=== PATIENT | male | born 1970 | race Caucasian/White ===

== ENCOUNTER → 2017-12-21 | Outpatient (CLI) | payer BC ==
[~2017-12-21] MED LIST: AMLO5TAB2 PO; EZET10TA5 PO; LISI1TAB PO
== END ==
LOC: WOUNDCARE 12:44
PROVIDERS: ATTEND Surgery
DX: L98.495 Non-pressure chronic ulcer of skin of other sites with muscle involvement without evidence of necrosis (principal); L98.492 Non-pressure chronic ulcer of skin of other sites with fat layer exposed; T21.3 Burn of third degree of trunk; T24.31 Burn of third degree of thigh; L94.2 Calcinosis cutis
CPT/HCPCS: 11042; 11043; 87070; 87075; 87077; 87186; 87205

== ENCOUNTER → 2017-12-28 | Outpatient (CLI) | payer BC | LOC: WOUNDCARE 12:24 | PROVIDERS: ATTEND Surgery | DX: L98.492 Non-pressure chronic ulcer of skin of other sites with fat layer exposed (principal); L97.122 Non-pressure chronic ulcer of left thigh with fat layer exposed; L94.2 Calcinosis cutis; T21.3 Burn of third degree of trunk; T24.31 Burn of third degree of thigh | CPT/HCPCS: 11042 ==

== ENCOUNTER → 2018-01-04 | Outpatient (CLI) | payer BC | LOC: WOUNDCARE 09:23 | PROVIDERS: ATTEND Surgery | DX: L98.492 Non-pressure chronic ulcer of skin of other sites with fat layer exposed (principal); T21.3 Burn of third degree of trunk; L97.122 Non-pressure chronic ulcer of left thigh with fat layer exposed; T24.31 Burn of third degree of thigh; L94.2 Calcinosis cutis | CPT/HCPCS: 11042 ==

== ENCOUNTER → 2018-01-12 | Outpatient (CLI) | payer BC | LOC: WOUNDCARE 12:33 | PROVIDERS: ATTEND Surgery | DX: L98.492 Non-pressure chronic ulcer of skin of other sites with fat layer exposed (principal); T21.3 Burn of third degree of trunk; L97.122 Non-pressure chronic ulcer of left thigh with fat layer exposed; T24.31 Burn of third degree of thigh; L94.2 Calcinosis cutis | CPT/HCPCS: 11042 ==

== ENCOUNTER → 2018-01-18 | Outpatient (CLI) | payer BC | LOC: WOUNDCARE 12:24 | PROVIDERS: ATTEND Nurse Practitioner | DX: L98.492 Non-pressure chronic ulcer of skin of other sites with fat layer exposed (principal); L94.2 Calcinosis cutis; T21.3 Burn of third degree of trunk | CPT/HCPCS: 11042; 87070; 87075; 87101; 87186; 87205 ==

== ENCOUNTER → 2018-01-27 | Outpatient (CLI) | payer BC | LOC: WOUNDCARE 09:33 | PROVIDERS: ATTEND Surgery | DX: L98.492 Non-pressure chronic ulcer of skin of other sites with fat layer exposed (principal); L94.2 Calcinosis cutis; T21.3 Burn of third degree of trunk | CPT/HCPCS: 11042 ==

== ENCOUNTER → 2018-03-01 | Outpatient (CLI) | payer BC | LOC: WOUNDCARE 12:25 | PROVIDERS: ATTEND Surgery | DX: L98.492 Non-pressure chronic ulcer of skin of other sites with fat layer exposed (principal); L94.2 Calcinosis cutis; T21.3 Burn of third degree of trunk | CPT/HCPCS: 99212 ==

== ENCOUNTER 2022-05-07 06:50 | Observation (INO) | payer BC ==
[~2022-05-07] VITALS: Ht 170.2 cm; Wt 86.3 kg
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
[2022-05-07] MEDS ORDERED: ASPIRIN 81 MG CHEW (CHILDREN'S ASA) PO ONE (07:45)
[2022-05-07 07:49] LABS: BASOPHILS # (AUTO) 0.1 10^3/uL (0.0-0.1); BASOPHILS % (AUTO) 1 % (0-10); EOSINOPHILS # (AUTO) 0.2 10^3/uL (0.0-0.3); EOSINOPHILS % (AUTO) 2 % (0-10); HEMATOCRIT 45 % (40-54); LYMPHOCYTES # (AUTO) 1.7 10^3/uL (1.0-4.0); LYMPHOCYTES % (AUTO) 17 % (12-44); MEAN CORPUSCULAR HEMOGLOBIN 31 pg (25-34); MEAN CORPUSCULAR HGB CONC 38 g/dL (32-36); MEAN CORPUSCULAR VOLUME 83 fL (80-99); MEAN PLATELET VOLUME 9.4 fL (9.0-12.2); MONOCYTES % (AUTO) 10 % (0-12); NEUTROPHILS # (AUTO) 6.9 10^3/uL (1.8-7.8); NEUTROPHILS % (AUTO) 70 % (42-75); PLATELET COUNT 343 10^3/uL (130-400); WHITE BLOOD COUNT 9.8 10^3/uL (4.3-11.0)
[2022-05-07 08:00] LABS: ALBUMIN 4.4 GM/DL (3.2-4.5)
[2022-05-07 08:01] LABS: INR 0.9 (0.8-1.4); PROTHROMBIN TIME PATIENT 12.4 SEC (12.2-14.7)
[2022-05-07 08:03] LABS: TOTAL PROTEIN 8.3 GM/DL (6.4-8.2)
[2022-05-07 08:05] LABS: BILIRUBIN,TOTAL 0.7 MG/DL (0.1-1.0)
--- NOTE | 2022-05-07 08:05 | Diagnostic Imaging Report ---
Indication: Chest pain Portable chest 8:03 AM Heart size and pulmonary vascularity are normal. Lungs are clear. There are no effusions or pneumothoraces. IMPRESSION: No acute abnormalities in the chest. Dictated by: Dictated on workstation # [id number]
[2022-05-07 08:07] LABS: CREATININE SERUM 1.01 MG/DL (0.60-1.30)
[2022-05-07 08:10] LABS: MAGNESIUM 1.7 MG/DL (1.6-2.4)
[2022-05-07] MEDS ORDERED: ENOXAPARIN 100 MG/1 ML (LOVENOX) SYR SC ONE (09:45)
[2022-05-07 12:00] VITALS: BP 183/118
[2022-05-07] MEDS ORDERED: ONDANSETRON 4 MG/2 ML (SDV) Z0FRAN IV PRN (12:00)
[2022-05-07] MEDS ORDERED: NS IV 1000 ML 1,000 ML IV SCH (12:00)
[2022-05-07] MEDS ORDERED: NITROGLYCERIN 0.4 MG SL TABS BTL 25'S SL PRN (12:00)
[2022-05-07 12:18] VITALS: BP 165/95
[2022-05-07] MEDS ORDERED: RT-ALBUTEROL SULF 2.5 MG/3 ML PRE-MIX VIAL INH PRN (12:30)
[2022-05-07 13:00] VITALS: BP 185/111
[2022-05-07] MEDS ORDERED: LISI40TA9 PO (13:35)
[2022-05-07] MEDS ORDERED: CITA20TA9 PO (13:35)
[2022-05-07] MEDS ORDERED: LOVA20TA2 PO (13:35)
[2022-05-07] MEDS ORDERED: GLIP5TAB26 PO (13:35)
[2022-05-07] MEDS ORDERED: METF-399 PO (13:35)
[2022-05-07] MEDS ORDERED: LOSA50TA63 PO (13:35)
[2022-05-07] MEDS ORDERED: HYDR12.56 PO (13:35)
[2022-05-07] MEDS ORDERED: AMLO-251 PO (13:35)
[2022-05-07] MEDS ORDERED: MTP100TCR PO (13:35)
[2022-05-07] MEDS ORDERED: OMEP20TA33 PO (13:35)
[2022-05-07] MEDS ORDERED: IBUP-2185 PO (13:35)
[2022-05-07 14:00] VITALS: BP 178/112
[2022-05-07] MEDS ORDERED: NON-FORMULARY MEDICATION 1 EA EA (Ibuprofen 600 MG) PO PRN (14:30)
[2022-05-07] MEDS ORDERED: PATIENT MAY USE OWN MEDS, ALL MC SCH (14:45)
[2022-05-07] MEDS ORDERED: IBUPROFEN 600 MG (MOTRIN) TAB PO PRN (15:30)
[2022-05-07] MEDS ORDERED: meTOprolol SUCCINATE 100 MG (TOPROL XL) TAB PO NR (15:45)
[2022-05-07] MEDS: inSUlin ASPART (NovoLOG) 1 UNIT/0.01 ML (CHARGE PER UNIT) SC SCH ×2 (16:00→21:42)
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
[2022-05-07] MEDS ORDERED: CATHETER FLUSH 10 ML SYR IV PRN (16:30)
[2022-05-07] MEDS ORDERED: NS IV 1000 ML 1,000 ML IV ONE (16:30)
--- NOTE | 2022-05-07 16:30 | Pre-Op Note & Conscious Sedat ---
Pre-Operative Progress Note Date of Available H&P: May 07, 2022 Date H&P Reviewed: May 07, 2022 Time H&P Reviewed: 16:29 History & Physical: H&P Reviewed, Patient Examed, No changes noted Pre-Op Diagnosis: Possible NSTEMI Conscious Sedation Pre-Proced ASA Score 2 For ASA 3 and 4: Consider anesthesia and medical clearance. Also, for patients with a history of failed moderate sedation consider anesthesia. Airway Lungs Heart ASA score ASA 1: a normal healthy patient ASA 2: a patient with a mild systemic disease (mid diabetes, controlled hypertension, obesity ASA 3: a patient with a severe systemic disease that limits activity (angina, COPD, prior Myocardial infarction) ASA 4: a patient with an incapacitating disease that is a constant threat to life (CHF, renal failure) ASA 5: a moribund patient not expected to survive 24 hrs. (ruptured aneurysm) ASA 6: a declared brain- patient whose organs are being harvested. For emergent operations, add the letter E after the classification Mallampati Classification Grade 2 Sedation Plan Analgesia, Amnesia, Plan communicated to team members, Discussed options with patient/fam, Discussed risks with patient/fam The patient is an appropriate candidate to undergo the planned procedure, sedation, and anesthesia. The patient immediately re-assessed prior to indication. Given his current clinical status, he is considered moderately frail in light of the possible myocardial infarction. He has no history of heart failure. DORIE VOGEL JR, MD May 07, 2022 16:30
[2022-05-07] MEDS ORDERED: VERAPAMIL 5 MG/2 ML (CALAN) VIAL IV ONE (17:04)
[2022-05-07] MEDS ORDERED: fentaNYL INJ 100 MCG/2 ML AMP ONE (17:04)
[2022-05-07] MEDS ORDERED: NITRO DRIP 25000 MCG/D5W 250 ML IV ONE (17:05)
[2022-05-07] MEDS ORDERED: MIDAZOLAM 2 MG/2 ML (VERSED) VIAL ONE (17:05)
[2022-05-07] MEDS ORDERED: NS IV 1000 ML 1,000 ML ONE (17:05)
[2022-05-07] MEDS ORDERED: HEParin 1000 UNIT/ML (10ML VIAL) FOR BOLUS ONE (17:05)
--- NOTE | 2022-05-07 17:23 | History & Physicial ---
History of Present Illness History of Present Illness Reason for visit/HPI Patient is a 51-year-old male with known hypertension, hyperlipidemia as well as recently diagnosed diabetes presents to [facility] emergency department with chest pain. He apparently has been suffering from chest pain off and on since Wednesday, May 04, 2022. This morning however chest pain doubled him over and he presented to [facility] emergency department. He has not been followed by cardiology and over the past several years has done well on his current medication regiment. Date of Admission May 07, 2022 at 11:23 Date Seen by a Provider: May 07, 2022 I consulted on this patient on 05/07/22 17:19 Attending Physician Pan Yeboah MD Admitting Physician Admitting Physician: Pan Yeboah MD Attending Physician: Pan Yeboah MD Consult Allergies and Home Medications Allergies Uncoded Allergies: PEANUTS (Allergy, Unknown, 05/07/22) Patient Home Medication List Home Medication List Reviewed: Yes Amlodipine Besylate (Amlodipine Besylate) 10 Mg Tablet, 10 MG PO DAILY, (Reported) Entered as Reported by: MENA CARMONA on 05/07/221334 Last Action: Continued Citalopram Hydrobromide (Citalopram HBr) 20 Mg Tablet, 20 MG PO 1800, (Reported) Entered as Reported by: MENA CARMONA on 05/07/221334 Last Action: Continued Glipizide (Glipizide ER) 5 Mg Tab.er.24, 5 MG PO DAILY, (Reported) Entered as Reported by: MENA CARMONA on 05/07/221334 Last Action: Continued Hydrochlorothiazide (Hydrochlorothiazide) 12.5 Mg Tablet, 12.5 MG PO DAILY, (Reported) Entered as Reported by: MENA CARMONA on 05/07/221334 Last Action: Converted Ibuprofen (Ibuprofen) 200 Mg Capsule, 400-600 MG PO Q8H PRN for PAIN-MILD (1-4), (Reported) Entered as Reported by: MENA CARMONA on 05/07/221334 Last Action: Converted Lisinopril (Lisinopril) 40 Mg Tablet, 40 MG PO DAILY, (Reported) Entered as Reported by: MENA CARMONA on 05/07/221334 Last Action: Continued Losartan Potassium (Losartan Potassium) 50 Mg Tablet, 50 MG PO 1800, (Reported) Entered as Reported by: MENA CARMONA on 05/07/221334 Last Action: Continued Lovastatin (Lovastatin) 20 Mg Tablet, 20 MG PO DAILY, (Reported) Entered as Reported by: MENA CARMONA on 05/07/221334 Last Action: Converted Metformin HCl (Metformin HCl) 1,000 Mg Tablet, 1,000 MG PO BID, (Reported) Entered as Reported by: MENA CARMONA on 05/07/221334 Last Action: Converted Metoprolol Succinate (Metoprolol Succinate) 100 Mg Tab.er.24h, 100 MG PO DAILY, (Reported) Entered as Reported by: MENA CARMONA on 05/07/221334 Last Action: Reviewed Omeprazole Magnesium (Prilosec Otc) 20 Mg Tablet.dr, 20 MG PO 1800, (Reported) Entered as Reported by: MENA CARMONA on 05/07/221334 Last Action: Converted Discontinued Medications Amlodipine Besylate (Amlodipine Besylate) 5 Mg Tablet, 5 MG PO DAILY, (Reported) Discontinued Reason: No Longer Taking Entered as Reported by: JERRI BALTAZAR on 09/20/11 1052 Last Action: Discontinued Ezetimibe (Zetia) 10 Mg Tablet, 10 MG PO DAILY, (Reported) Discontinued Reason: No Longer Taking Entered as Reported by: PARISH BARAHONA on 09/19/11 1037 Last Action: Discontinued Hctz/Lisinopril (Lisinopril-Hctz 20-12.5 Mg Tab) 1 Each Tablet, 1 EACH PO BID, (Reported) Discontinued Reason: No Longer Taking Entered as Reported by: PARISH BARAHONA on 09/19/11 1037 Last Action: Discontinued Past Ngouxsa-Lyfnad-Ppxmdf Hx Patient Social History Marrital Status: Smoking Status: Never a Smoker Have you traveled recently?: No Alcohol Use?: No Pt feels they are or have been: Yes Reproductive System Hx Reproductive Disorders: No Review of Systems Constitutional: see HPI Physical Exam Vital Signs Vital Signs - First Documented 05/07/22 07:06 Temp 36.8 Pulse 92 Resp 18 B/P (MAP) 183/106 (131) Pulse Ox 98 O2 Delivery Room Air Capillary Refill : Less Than 3 Seconds Height, Weight, BMI Height: '" Weight: lbs. oz. kg; 29.79 BMI Method: General Appearance: No Apparent Distress Assessment/Plan Assessment and Plan Problems: (1) Non-ST elevation myocardial infarction (NSTEMI), initial care episode Assessment & Plan: It appears based upon his presentation to ED he has having a NSTEMI. He was also noted to have elevated troponin level. Patient is admitted to cardiac stepdown. Cardiology Dr. Bonilla has been consulted. (2) Primary hypertension Assessment & Plan: After cardiology evaluation most likely he will be started back on his blood pressure medications. He has had difficulty with various classes of blood pressure medications and therefore he is on the lisinopril and losartan both. (3) Mixed hyperlipidemia Assessment & Plan: He is currently on lovastatin at home. Most likely he will be switched to more intensive cholesterol management with Crestor. (4) Type 2 diabetes mellitus without complication Assessment & Plan: We will hold on metformin for now. Sliding scale insulin (5) Obesity Clinical Quality Measures AMI/AHF: ASA po Prior to arrival: PAN Fang MD May 07, 2022 17:23
[2022-05-07] MEDS ORDERED: TICAGRELOR 90 MG TABLET (BRILINTA) PO ONE (17:41)
[2022-05-07] MEDS ORDERED: PANTOPRAZOLE 20 MG TABLET (PROTONIX) PO SCH (18:00)
[2022-05-07] MEDS ORDERED: LOSARTAN 50 MG (COZAAR) TAB PO SCH (18:00)
[2022-05-07] MEDS ORDERED: METFORMIN 1000 MG PO SCH (18:00)
[2022-05-07] MEDS ORDERED: NON-FORMULARY MEDICATION 1 EA EA (Omeprazole Magnesium (Prilosec Otc) 20 MG) PO SCH (18:00)
[2022-05-07] MEDS ORDERED: hydrALAZINE (APESOLINE) 20 MG/ML VIAL ONE (18:28)
--- NOTE | 2022-05-07 18:57 | Cardiac Cath Report ---
CARDIAC CATHETERIZATION DATE OF PROCEDURE: 05/07/2022 INDICATION: Non-ST elevation myocardial infarction. HISTORY: The patient is a 51 year old male with no known history of coronary artery disease by cardiac risk factor history of hypertension, hyperlipidemia and type 2 diabetes mellitus. He has had a several day history of intermittent chest discomfort that gradually increased in frequency, duration and severity. This morning he had more severe chest discomfort and came to the hospital. His initial troponin level was elevated. A follow-up troponin level several hours later was further elevated. The patient did become pain-free prior to arriving in the emergency room. He had some dynamic electrocardiogram changes and anterior wall motion abnormalities on his echocardiogram. In light of this constellation of findings, he is now referred for further evaluation with an urgent cardiac catheterization. Given his current clinical status, he is considered moderately frail. He does not have any history of heart failure. PROCEDURES PERFORMED: 1. Left heart catheterization with hemodynamic measurements. 2. Diagnostic walk[place] river coronary angiography. 3. Drug-eluting stent placement to the mid left anterior descending coronary artery. This was most likely the ischemia related vessel for the non-ST elevation myocardial infarction. 4. Drug-eluting stent placement to the mid right coronary artery. PROCEDURE DESCRIPTION: After informed consent and in the fasting state, left heart catheterization was performed through the right radial artery utilizing a 6 Burkinan system by percutaneous approach. Standard Von catheters were utilized for the diagnostic portion of the procedure. A 6 Burkinan CLS 3.5 guide catheter was utilized for the percutaneous coronary intervention on the left anterior descending coronary artery. I attempted to perform the coronary intervention on the right coronary artery through a 6 Burkinan AR-1 guide catheter and a 6 Burkinan Kamari right guide catheter but these would not sit well in the ostium. I was ultimately able to perform the coronary intervention on the right coronary artery through a 6 Burkinan AL-1 guide catheter. All catheters were exchanged over a guidewire. Following the procedure, a vascular band was ap plied to the radial artery access site and the sheath was removed with good hemostasis. RESULTS: HEMODYNAMICS: The aortic pressure was 130/88 mmHg. The left ventricular pressure was 130/0 mmHg with a left ventricular end-diastolic pressure of 8 mmHg. There was no significant pressure gradient upon pullback across aortic valve. CORONARY ANGIOGRAPHY: Left main coronary artery: Free of significant disease. Left anterior descending coronary artery: There was a 99% stenosis in the midportion of the vessel just distal to the first major diagonal branch with NAREN I flow. This was most likely the ischemia related vessel for the acute non-ST elevation myocardial infarction. Left circumflex coronary artery: Free of significant disease. Ramus intermedius: There was a ramus intermedius branch that was free of significant disease. Right coronary artery: Dominant and there was a 90% stenosis in the midsegment with NAREN I flow to the distal branches. The posterior descending artery and an occluded posterolateral branches were free of significant disease. PERCUTANEOUS CORONARY INTERVENTION OF LEFT ANTERIOR DESCENDING CORONARY ARTERY: I first directed my attention to the lesion in the midportion of the left anterior descending coronary artery because this was the vessel corresponding to the electrocardiogram changes and wall motion abnormality on the echocardiogram and was most likely the ischemia related vessel for the acute myocardial infarction. I first successfully cross the stenosis with a Prowater guidewire. I subsequently performed coronary angioplasty with a 2.5 x 12 mm Trek balloon at a pressure of 10 tiffany for several inflations. Flow was restored. I subsequently deployed a 2.75 x 23 mm drug-eluting Xience Skypoint stent at a pressure of 16 tiffany. Following stent placement, there was 0% residual stenosis with NAREN-3 flow. PERCUTANEOUS CORONARY INTERVENTION OF RIGHT CORONARY ARTERY: I then directed my attention to the right coronary artery and first attempted to cross the stenosis with a Prowater guidewire through a 6 Burkinan AR-1 guide catheter but this catheter would not sit well in the ostium. The system was removed over wire. I then engage the right coronary artery with a 6 Burkinan Kamari right guide catheter but this also would not sit well in the vessel. I was then able to seat a 6 Burkinan AL-1 guide catheter in the right coronary artery. I successfully crossed the stenosis in the midportion of the vessel with a Whisper medium support guidewire. I subsequently performed coronary angioplasty with t he same 2.5 x 12 mm Trek balloon at a pressure of 10 tiffany for several inflations. Flow was improved. I subsequently deployed a 3.5 x 23 mm drug-eluting Xience Skypoint stent in the midsegment and a pressure of 16 tiffany. I then postdilated the entire length of the stent with a 3.5 x 12 mm noncompliant Trek balloon at a pressure of 16 tiffany. Following stent placement, there was 0% residual stenosis with NAREN-3 flow. IMPRESSION: 1. Normal left heart pressures. 2. The midportion of the left anterior descending coronary artery contained a 99% stenosis with NAREN I flow. This was most likely the ischemia related vessel for the acute myocardial infarction. 3. The mid right coronary artery contained a 90% stenosis with NAREN I flow. 4. Status post drug-eluting stent placement to the midportion of the left anterior descending coronary artery with a 2.75 x 23 mm Xience Skypoint stent with 0% residual stenosis and NAREN-3 flow. 5. Status post drug-eluting stent placement to the mid right coronary artery with a 3.5 x 23 mm Xience Skypoint stent postdilated with a 3.5 mm noncompliant balloon with 0% residual stenosis and NAREN-3 flow. 6. The patient is known to have normal left ventricular systolic function with an estimated ejection fraction of 55-60% by echocardiogram performed prior to this procedure. Certain portions of this document may have been dictated utilizing voice recognition technology. Inherent to this technology, typographical and grammatical errors may exist. As much as I am diligent to identify and correct these mistakes, some errors may remain in the document. DORIE VOGEL JR, MD May 07, 2022 18:57
[2022-05-07] MEDS ORDERED: HEParin (CATH LAB) 2,000 ML IV ONE (19:12)
[2022-05-07] MEDS ORDERED: LIDOCAINE 1% INJ 30 ML (XYLOCAINE) VIAL ONE (19:12)
[2022-05-07] MEDS: NS IV 1000 ML 1,000 ML IV SCH (20:15)
[2022-05-07 21:00] VITALS: BP_SYST 170; BP_SYST 178; BP_DIAS 107
[2022-05-07] MEDS ORDERED: ROSUVASTATIN 20 MG (CRESTOR) TABLET PO SCH (21:00)
[2022-05-07] MEDS ORDERED: TICAGRELOR 90 MG TABLET (BRILINTA) PO SCH (21:00)
[2022-05-07 21:11] VITALS: BP 178/107
[2022-05-07] MEDS ORDERED: ENOXAPARIN 100 MG/1 ML (LOVENOX) SYR SC SCH (22:00)
[2022-05-08] VITALS: BP 140/97
[2022-05-08] MEDS: NS IV 1000 ML 1,000 ML IV SCH ×2 (05:08→15:16)
[2022-05-08 05:53] LABS: TRIGLYCERIDES 202 MG/DL (<150); VLDL CHOLESTEROL 40 MG/DL (5-40)
[2022-05-08 05:58] LABS: CHOLESTEROL 161 MG/DL (< 200)
[2022-05-08 05:59] LABS: HDL CHOLESTEROL 32 MG/DL (40-60)
[2022-05-08] MEDS ORDERED: TICAGRELOR 90 MG TABLET (BRILINTA) PO SCH (06:00)
[2022-05-08] MEDS: inSUlin ASPART (NovoLOG) 1 UNIT/0.01 ML (CHARGE PER UNIT) SC SCH ×2 (06:31→13:01)
[2022-05-08] MEDS ORDERED: amLODIPine 10 MG (NORVASC) TAB PO SCH (07:00)
[2022-05-08] MEDS ORDERED: HydroCHLOROthiazide CAP/TABLET 12.5 MG TAB PO SCH (07:00)
[2022-05-08] MEDS ORDERED: glipiZIDE XL 5 MG (GLUCOTROL XL) TAB PO SCH (07:00)
--- NOTE | 2022-05-08 07:31 | Progress Note ---
Subjective Date Seen by a Provider: May 08, 2022 Time Seen by a Provider: 07:15 Subjective/Events-last exam Patient feeling much better this morning. He denies any chest pain. Objective Exam Vital Signs Date Time Temp Pulse Resp B/P (MAP) Pulse Ox O2 Delivery O2 Flow Rate FiO2 05/08/22 04:00 Room Air 05/08/22 04:00 37.0 05/08/22 01:13 84 05/08/22 00:00 74 18 140/97 (111) 97 Room Air 05/08/22 00:00 Room Air 05/08/22 00:00 37.0 05/07/22 21:11 36.7 73 18 178/107 (130) 97 Room Air 05/07/22 21:00 36.7 73 18 178/107 (130) 97 Room Air 05/07/22 21:00 74 170/107 (128) 99 Room Air 05/07/22 20:00 Room Air 05/07/22 20:00 36.9 05/07/22 19:33 75 05/07/22 16:00 Room Air 05/07/22 14:00 72 17 178/112 (134) 99 05/07/22 13:00 73 05/07/22 13:00 73 26 185/111 (135) 99 05/07/22 12:18 36.8 85 98 05/07/22 12:00 84 28 183/118 (139) 100 05/07/22 12:00 99 Room Air 05/07/22 12:00 99 Room Air 05/07/22 11:38 36.8 85 18 165/95 98 Room Air I & O 05/08/22 06:59 Intake Total 1500 ml Balance 1500 ml Capillary Refill : Less Than 3 Seconds General Appearance: No Apparent Distress Neck: Supple Respiratory: Lungs Clear Cardiovascular: Regular Rate, Rhythm, No Murmur Gastrointestinal: soft Extremity: Normal Capillary Refill Results Lab Laboratory Tests 05/07/22 13:15: Troponin I 0.574*H 05/07/22 22:02: Glucometer 295H 05/08/22 05:30: Triglycerides Level 202H, Cholesterol Level 161, LDL Cholesterol Direct 112, VLDL Cholesterol 40, HDL Cholesterol 32L 05/08/22 06:24: Glucometer 227H Assessment/Plan Assessment/Plan Assess & Plan/Chief Complaint (1) Non-ST elevation myocardial infarction (NSTEMI), initial care episode Assessment & Plan: It appears based upon his presentation to ED he has having a NSTEMI. He was also noted to have elevated troponin level. Patient is admitted to cardiac stepdown. Cardiology Dr. Bonilla has been consulted. 05/08 -Successful cardiac catheterization with placement of 2 stents 1 in right in 1 LAD. -I spoke with him regarding outpatient improvement of his blood pressure as well as diabetes. (2) Primary hypertension Assessment & Plan: After cardiology evaluation most likely he will be started back on his blood pressure medications. He has had difficulty with various classes of blood pressure medications and therefore he is on the lisinopril and losartan both. (3) Mixed hyperlipidemia Assessment & Plan: He is currently on lovastatin at home. Most likely he will be switched to more intensive cholesterol management with Crestor. (4) Type 2 diabetes mellitus without complication Assessment & Plan: We will hold on metformin for now. Sliding scale insulin 05/08 -He did receive dose of insulin for sliding scale Clinical Quality Measures AMI/AHF: ASA po Prior to arrival: LARRY Fang MD May 08, 2022 07:31
[2022-05-08 07:36] VITALS: BP 179/116
[2022-05-08] MEDS ORDERED: ENOXAPARIN 100 MG/1 ML (LOVENOX) SYR SC SCH (08:00)
[2022-05-08] MEDS ORDERED: ENOXAPARIN 40 MG/0.4 ML (LOVENOX) SYR SC SCH (08:00)
[2022-05-08] MEDS ORDERED: meTOprolol SUCCINATE 100 MG (TOPROL XL) TAB PO SCH (09:00)
[2022-05-08] MEDS ORDERED: ASPIRIN 81 MG CHEW (CHILDREN'S ASA) PO SCH (09:00)
[2022-05-08] MEDS ORDERED: NON-FORMULARY MEDICATION 1 EA EA (Hydrochlorothiazide 12.5 MG) PO SCH (09:00)
[2022-05-08] MEDS ORDERED: lisINopril 40 MG (PRINIVIL) TABLET PO SCH (09:00)
[2022-05-08] MEDS ORDERED: LOVASTATIN 20 MG TABLET PO SCH (09:00)
[2022-05-08 11:34] VITALS: BP 179/111
--- NOTE | 2022-05-08 12:23 | Cardiology Progress Note ---
Progress Note-Cardiology Events since last exam Date Seen by Provider: May 08, 2022 Time Seen by Provider: 12:23 Events since last exam I am following him for NSTEMI. He denies any further chest pain. He has been ambulating in his room without any issues. He denies dyspnea, palpitations, syncope, or ankle edema. Certain portions of this document may have been dictated utilizing voice recognition technology. Inherent to this technology, typographical and grammatical errors may exist. As much as I am diligent to identify and correct these mistakes, some errors may remain in the document. Vitals Last set of Vitals Signs Vital Signs 05/08/22 05/08/22 05/08/22 11:34 12:13 13:00 Temp 36.8 Pulse 76 Resp 16 B/P (MAP) 179/111 (133) Pulse Ox 99 O2 Delivery Room Air Exam Vital Signs Vital Signs Date Time Temp Pulse Resp B/P (MAP) Pulse Ox O2 Delivery O2 Flow Rate FiO2 05/08/22 13:00 76 05/08/22 12:13 Room Air 05/08/22 11:34 36.8 16 179/111 (133) 99 Physical Exam General: Alert. No acute distress. Eye: No xanthelasma. HENT: Normocephalic. Neck: Jugular venous pressure does not appear elevated. Respiratory: Lungs are clear to auscultation. Respirations are non-labored. Breath sounds are equal. Symmetrical chest wall expansion. Cardiovascular: Normal rate. Regular rhythm. No murmur. No gallop. No edema. Gastrointestinal: Soft. Normal bowel sounds. Skin: Warm. Dry. Neurologic: Alert and oriented to person, place, time. Cranial nerves 3-11 grossly intact. Psychiatric: Cooperative. Appropriate mood & affect. Labs Laboratory Tests Test 05/07/22 22:02 05/08/22 05:30 05/08/22 06:24 05/08/22 12:51 Range/Units Glucometer 295 H 227 H 215 H 70-110 MG/DL Triglycerides Level 202 H <150 MG/DL Cholesterol Level 161 < 200 MG/DL LDL Cholesterol Direct 112 1-129 MG/DL VLDL Cholesterol 40 5-40 MG/DL HDL Cholesterol 32 L 40-60 MG/DL Diagnosis/Problems Diagnosis/Problems (1) Non-ST elevation myocardial infarction (NSTEMI), initial care episode Assessment & Plan: He has no recurrent angina. He was treated with drug-elu ting stents to the left anterior descending and right coronary arteries. He has normal ejection fraction. He should continue aspirin, ticagrelor, beta-li and intensive dose statin medication. From a cardiac standpoint, he can be discharged home. I have asked a staff to get him a follow-up appointment with me in the office in 1 month. (2) Primary hypertension Assessment & Plan: He was taking both lisinopril and losartan due to some medication intolerances in the past. He is still hypertensive today. I have taken the liberty of increasing his dose of losartan to 100 mg daily. He may need some additional testing to screen for secondary causes of hypertension since he appears to be on 5 antihypertensive agents. I could certainly coordinate this testing as an outpatient. I did add an aldosterone and renin level to his blood work from this morning. I sent prescriptions for any new and altered cardiac medications to his outpatient pharmacy. (3) Mixed hyperlipidemia Assessment & Plan: He was taking lovastatin at home. I now have him on inte nsive dose rosuvastatin due to the myocardial infarction. I would consider repeating a lipid panel in 6 weeks and at that time, he may be able to reduce the dose of his statin medication. (4) Type 2 diabetes mellitus without complication Assessment & Plan: The primary provider is managing the diabetes. He can resume his metformin tomorrow. He may benefit from an SGLT2 inhibitor especially in light of his newly diagnosed coronary artery disease. I will leave this up to the discretion of his primary provider. (5) Obesity Assessment & Plan: He needs to work on a little weight loss. DORIE VOGEL JR, MD May 08, 2022 12:23
[2022-05-08] MEDS ORDERED: LOSARTAN 100 MG (COZAAR) TABLET PO NR (12:30)
[2022-05-08] MEDS ORDERED: NITR0.4T42 SL (14:23)
[2022-05-08] MEDS ORDERED: TICA90TA PO (14:23)
[2022-05-08] MEDS ORDERED: LOSA100T57 PO (14:23)
[2022-05-08] MEDS ORDERED: ROSU20TA32 PO (14:23)
[2022-05-08] MEDS ORDERED: ASPI81TA64 PO (14:23)
[2022-05-08 16:00] VITALS: BP 167/104
[2022-05-08 16:34] VITALS: BP 167/104
[2022-05-09] MEDS ORDERED: LOSARTAN 100 MG (COZAAR) TABLET PO SCH (09:00)
== END 2022-05-08 16:55 | disposition home or self-care (01) ==
LOC: EDUNIT# 06:50 → ER 06:54 → CSD 11:23
PROVIDERS: ADMIT Family Medicine; ATTEND Family Medicine
DX: I25.10 Atherosclerotic heart disease of native coronary artery without angina pectoris (principal); E78.2 Mixed hyperlipidemia; I10 Essential (primary) hypertension; I21.4 Non-ST elevation (NSTEMI) myocardial infarction; E11.9 Type 2 diabetes mellitus without complications; E66.9 Obesity, unspecified; Z68.29 Body mass index [BMI] 29.0-29.9, adult; Z79.899 Other long term (current) drug therapy; Z79.84 Long term (current) use of oral hypoglycemic drugs
CPT/HCPCS: 71045; 80053; 80061; 82088; 82947 ×2; 83036; 83735; 83874; 84244; 84484; 85025; 85347; 85610; 85730; 93005 ×2; 93041; 93458; 96372; 99284; C1725 ×2; C1769; C1874 ×2; C1887 ×4; C1894; C8929; C9601; C9606; G0378; 36415; 93306

== ENCOUNTER 2022-07-14 14:44 | Outpatient (RCR) | payer BC ==
[~2022-07-14 14:44] MED LIST changes: +AMLO-251 PO; +ASPI81TA64 PO; +CITA20TA9 PO; +GLIP5TAB26 PO; +HYDR12.56 PO; +IBUP-2185 PO; +LISI40TA9 PO; +LOSA100T57 PO; +LOSA50TA63 PO; +LOVA20TA2 PO; +METF-399 PO; +MTP100TCR PO; +NITR0.4T42 SL; +OMEP20TA33 PO; +ROSU20TA32 PO; +TICA90TA PO
== END 2022-07-16 | disposition home or self-care (01) ==
LOC: CR 14:44
PROVIDERS: ATTEND Internal Medicine Cardiovascular Disease
DX: I25.2 Old myocardial infarction (principal); Z95.5 Presence of coronary angioplasty implant and graft
CPT/HCPCS: 93798

== ENCOUNTER 2022-07-23 12:29 | Outpatient (CLI) | payer BC | END 2022-07-23 12:55 | LOC: SLEEP 12:29 | PROVIDERS: ATTEND Internal Medicine Cardiovascular Disease | DX: G47.34 Idiopathic sleep related nonobstructive alveolar hypoventilation (principal); I10 Essential (primary) hypertension | CPT/HCPCS: G0399 ==

== ENCOUNTER 2022-08-06 09:55 | Outpatient (RCR) | payer BC | END 2022-08-16 | disposition home or self-care (01) | LOC: CR 09:55 | PROVIDERS: ATTEND Internal Medicine Cardiovascular Disease | DX: Z29.8 Encounter for other specified prophylactic measures (principal); I25.2 Old myocardial infarction; Z95.5 Presence of coronary angioplasty implant and graft | CPT/HCPCS: 93798 ==